=== PATIENT | male | born 1975 | race Caucasian/White ===

== ENCOUNTER 2018-02-20 11:16 | Observation (INO) | payer BC ==
[~2018-02-20] VITALS: Ht 175.3 cm; Wt 85.0 kg
[2018-02-20] MEDS ORDERED: NORCO 325 MG-51 TAB PO (13:44)
[2018-02-20 15:43] LABS: BASO % 0.3 % (0.0-2.0); EOS % 0.1 % (0-4.0); GRAN # 10.1 (1.4-6.5); GRAN % 83.1 % (42.2-75.2); HEMATOCRIT 42.2 % (42.0-52.0); HEMOGLOBIN 14.4 g/dl (13.5-18.0); LYMPH # 1.2 (1.2-3.4); LYMPH % 9.8 % (20.0-51.0); MEAN CELL VOLUME 87 fl (80.0-100.0); MEAN CORPUSCULAR HEMOGLOBIN 30 pg (27.0-31.0); MEAN CORPUSCULAR HGB CONC 34 g/dl (33.0-37.0); MEAN PLATELET VOLUME 9.5 fl (7.4-10.4); MONO # 0.7 (0.1-0.6); PLATELET COUNT 195 K/mm3 (130-400); RED BLOOD COUNT 4.83 M/mm3 (4.20-5.60); REDCELL DISTRIBUTION WIDTH-CV 12.3 % (11.5-14.5)
[2018-02-20 15:57] LABS: CALCIUM 8.2 mg/dL (8.4-10.2); CREATININE, serum 0.98 mg/dL (0.66-1.25); POTASSIUM 3.7 mmol/L (3.4-5.0)
[2018-02-20 16:25] VITALS: BP 118/79; PULSE 68; TEMP 97.3
[2018-02-20 20:00] VITALS: BP 101/76; PULSE 60; TEMP 97.9
[2018-02-20 23:44] VITALS: BP 102/68; PULSE 64; TEMP 98.1
[2018-02-21 05:34] VITALS: BP 93/69; PULSE 53; TEMP 98.1
[2018-02-21 08:00] VITALS: BP 118/68; PULSE 59; TEMP 98.6
== END 2018-02-21 11:30 | disposition home or self-care (01) ==
LOC: COL.ER 11:16 → SURG 15:27
PROVIDERS: Emergency Medicine
DX: M54.2 Cervicalgia (principal); R51 Headache; V49.59XA Passenger injured in collision with other motor vehicles in traffic accident, initial encounter; Y92.411 Interstate highway as the place of occurrence of the external cause
CPT/HCPCS: G0378; J1170; J1885; J2060; J2405; J7030; J7120; L0174